=== PATIENT | female | born 1955 ===

== ENCOUNTER 2018-05-28 06:01 | Day surgery (SDC) | payer MEDICAID ==
[2018-05-22 08:48] VITALS: BMI 33.5
[2018-05-28] MEDS ORDERED: Bupivacaine 0.5% Inj(30mL) IJ ONE (06:51)
[2018-05-28] MEDS ORDERED: ceFAZolin IV 1 gm in Dextrose 1 GM/50 ML BAG IVPB ONE (06:51)
[2018-05-28] MEDS ORDERED: Lidocaine 1% Inj (20ml) IJ ONE (06:51)
--- NOTE | 2018-05-28 06:53 | CP.SDSHP ---
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 Evaluated Today:Candidate for Anesthesia & Procedure: Yes - Date & Time Date: 05/28/18 Time: 06:53 Short Stay Discharge - Short Stay Discharge Admitting Diagnosis/Reason for Visit: M20.5X1 Disposition: HOME/ ROUTINE Additional Instructions (Diet, Activity): -Patient in good/stable condition for discharge home -Pt to resume medications per medical reconciliation -Resume regular diet -Please keep dressing clean, dry, & intact to surgical site -Use plastic bag over bandage for showering -Wear post op shoe at all times when ambulating -Call clinic if you see signs of infection (redness, swelling, malodor) -Please make an appointment to see Dr. Ponce in office/clinic within 1 week for post-op check Progress Note/Discharge Note with Instructions: - Patient evaluated bedside in recovery s/p Right 5th digit surgery - After surgical procedure patient in NAD - (+) Void, (+) Appetite - Capillary refill time <3s and NVS intact. - Patient denies complaints at this time. - Post operative instructions and plan of care explained to patient at length. - Patient. acknowledges verbal understanding. - Patient stable for DC per podiatric surgery
[2018-05-28] MEDS ORDERED: Sodium Chloride 0.9% 1,000 ML IV SCH (07:00)
[2018-05-28 07:03] VITALS: RESP 18
--- NOTE | 2018-05-28 07:10 | CP.PCM.PN ---
Subjective - Date & Time of Evaluation Date of Evaluation: 05/28/18 Time of Evaluation: 07:09 - Subjective Subjective: Podiatry progress note for Dr. Ponce, 63 y/o female patient with PMHx of HTN was seen and evaluated in [facility] for right foot surgery of the 5th digit. Patient states she fractured her right 5th digit many years ago, and it causes her minimal pain. Patient denies any other complaints. Patient is AAOx3 with family present at bedside, and patient reports she last ate of drank around 9:00 PM last night. Patient denies any adverse reactions to anesthesia in the past. PMHx: HTN, glaucoma PSHx: appendectomy, cholecystectomy ALL: NKDA Objective - Vital Signs/Intake and Output Vital Signs (last 24 hours): Temp Pulse Resp BP Pulse Ox 98 F 57 L 18 106/68 97 05/28/18 06:50 05/28/18 06:50 05/28/18 06:50 05/28/18 06:50 05/28/18 06:50 - Medications Medications: Current Medications Cefazolin Sodium/Dextrose (Ancef Iv 1 Gm Duplex) 1 gm in 50 mls @ 50 mls/hr IVPB ONCE ONE; Protocol Stop: 05/28/18 07:50 Sodium Chloride (Sodium Chloride 0.9%) 1,000 mls @ 0 mls/hr IV .Q0M KAUSHAL Stop: 05/29/18 06:51 - Constitutional Appears: Well, Non-toxic, No Acute Distress - Head Exam Head Exam: ATRAUMATIC, NORMOCEPHALIC - Extremities Exam Additional comments: Right lower extremity VASC: DP and PT 2/4 palpable, CFT less than 3 seconds X 10, no edema, TG within normal limits NEURO: grossly intact DERM: no open lesions, no erythema, no edema, no clinical signs of infection ORTHO: hammering noted of the 5th digit, no pain on palpation, no pain with range of motion - Neurological Exam Neurological Exam: Alert, Awake, Oriented x3 - Psychiatric Exam Psychiatric exam: Normal Affect, Normal Mood Assessment and Plan - Assessment and Plan (Free Text) Assessment: 63 y/o female seen and evaluated in [facility] for right 5th digit arthroplasty Plan: Pt was seen and examined in [facility] Pt NPO status was confirmed All pre-op testing and clearance in chart Pt has exhausted all conservative treatment at this time and is opting for surgical intervention Pt was explained procedure and post-operative course All pt's questions were answered to satisfaction No guarantees were made Pt understands all risks, benefits and complications of procedure Pt will follow-up with Dr. Ponce within 1 week of surgery
[2018-05-28] MEDS ORDERED: Propofol 10 mg/ml Inj (20 ML) ONE ×2 (07:18→07:21)
[2018-05-28] MEDS ORDERED: ePHEDrine 50 mg/ml Inj ONE (07:18)
[2018-05-28] MEDS ORDERED: Succinylcholine 200 mg/10 ml Inj IV ONE (07:19)
[2018-05-28] MEDS ORDERED: Rocuronium 10 mg/ml (5 ml) ONE (07:19)
[2018-05-28] MEDS ORDERED: Phenylephrine 10 mg/ml Inj ONE (07:19)
[2018-05-28] MEDS ORDERED: Midazolam 2 MG/2 ML VIAL ONE (07:19)
[2018-05-28] MEDS ORDERED: Lidocaine 1% Inj (20ml) ONE (07:24)
[2018-05-28] MEDS ORDERED: Bupivacaine HCl 0.25% PF (30 ml) Inj ONE (07:24)
[2018-05-28] MEDS ORDERED: Sodium Chloride 0.9% 10 ML IV ONE (07:28)
[2018-05-28] MEDS ORDERED: Lactated Ringer's 1,000 ML IV ONE (07:55)
[2018-05-28] MEDS ORDERED: Bupivacaine 0.25% Inj(30mL) IJ ONE (08:00)
[2018-05-28] MEDS ORDERED: Dexamethasone 4 mg/1 ml ONE (08:33)
--- NOTE | 2018-05-28 08:46 | PCM.SURG1 ---
Surgeon's Initial Post Op Note - Surgeon's Notes Surgeon: Dr. Mike Ponce Nuclear Powerplant Mechanic Helper: Dr. Linette Gamez PGY1, Dr. Gil Jackson PGY2 Type of Anesthesia: IV Sedation Pre-Operative Diagnosis: R foot deformity of 5th digit Operative Findings: See dictation. I: 2cc 0.5% marcaine. M: 3-0 Vicryl, 4-0 Nylon Post-Operative Diagnosis: Same Operation Performed: Right 5th digit arthroplasty Specimen/Specimens Removed: Bone from right 5th digit Estimated Blood Loss: EBL {In ML}: 1 Blood Products Given: N/A Drains Used: No Drains Post-Op Condition: Good Date of Surgery/Procedure: 05/28/18 Time of Surgery/Procedure: 08:46
[2018-05-28] MEDS ORDERED: Oxycodone/Acetaminophen 5/325 mg Tab PO PRN ×2 (08:47)
[2018-05-28 15:05] VITALS: BP 113/72; PULSE 70; TEMP 97.5; O2SAT 100
--- NOTE | 2018-05-28 15:33 | RAD ---
Date of service: 05/28/2018 PROCEDURE: Right Foot Radiographs. HISTORY: s/p right foot surgery COMPARISON: 01/03/2018. FINDINGS: BONES: Status post partial amputation of proximal phalanx of the little toe. Bone alignment and mineralization are normal. There is no acute fracture or bone destruction. There is a small plantar calcaneal spur. There is a prominent dorsal calcaneal enthesophyte. JOINTS: Normal. SOFT TISSUES: There is moderate soft tissue swelling in the forefoot. OTHER FINDINGS: None. IMPRESSION: Status post partial amputation of the proximal phalanx of the little toe. No acute fracture or bone destruction. Findings soft tissue swelling in the forefoot.
--- NOTE | 2018-05-28 20:01 | CARD ---
APPROVED REPORT Date of service: 05/28/2018 EKG Measurement Heart [id number] <Conclusion> Sinus bradycardia Nonspecific T wave abnormality Abnormal ECG
--- NOTE | 2018-06-02 07:48 | OP ---
PROCEDURE DATE: 05/28/2018 PATIENT'S AGE: 63. PATIENT'S SEX: Female. SURGEON: Mike Ponce DPM ASSISTANTS: Alex Stock, PGY-1 and Gil Jackson DPM, PGY-2 TYPE OF ANESTHESIA: IV sedation with local block. PREOPERATIVE DIAGNOSIS: Right foot deformity of the fifth digit. POSTOPERATIVE DIAGNOSIS: Right foot deformity of the fifth digit. NAME OF PROCEDURE: Right fifth digit arthroplasty. INDICATION: The patient is a 63-year-old female with the above diagnosis. The patient has exhausted conservative treatment at this time and is now pursuing surgical intervention. The patient signed the consent after careful explanation of risks, benefits, complications, and alternatives for surgical procedure. No guarantees were given nor implied. N.p.o. status was confirmed prior to taking the patient to operating room. PREPARATION: The patient was brought back into the operating room and placed on the operating room table in the supine position. After induction of IV sedation, the patient received a total of 10 mL of 1:1 mixture of 0.5% Marcaine plain and 1% lidocaine plain in a local block fashion to the right foot. Once local anesthesia was achieved, the right foot was then prepped and draped in the usual sterile manner. A time-out was performed and the procedure began. DESCRIPTION OF PROCEDURE: Attention was directed to the right fifth digit where a 2-cm linear incision was made on the dorsal aspect of the proximal interphalangeal joint of the fifth digit. After dissection was carried down through the deep cutaneous tissue, being careful to identify and retract all vital neurovascular structure. All bleeders were ligated and cauterized. At this time, medial capsulotomy was performed to the distal interphalangeal joint. identified in the joint space . Using a bone rongeur, the proximal aspect of the proximal phalanx was then resected and passed off the operating field. The surgical site was then irrigated with copious amounts of normal sterile saline. The were reapproximated and sutured with a 3-0 Vicryl. The skin was then reapproximated with stitches with 4-0 nylon. The right foot was then dressed with Xeroform, DSD, and . POSTOPERATIVE CONDITION: The patient tolerated the anesthesia and procedure well and was escorted to the recovery room with vital signs stable and neurovascular status intact to the right foot. The patient will follow up with Dr. Ponce in office within one week. ALEX REBECCA Mike Ponce DPM
== END 2018-05-28 12:50 | disposition home or self-care (01) ==
LOC: H.OPSURG 06:01
PROVIDERS: ATTEND Podiatrist
DX: M20.41 Other hammer toe(s) (acquired), right foot (principal); M20.5X1 Other deformities of toe(s) (acquired), right foot; J44.9 Chronic obstructive pulmonary disease, unspecified; E78.5 Hyperlipidemia, unspecified; I10 Essential (primary) hypertension; G40.909 Epilepsy, unspecified, not intractable, without status epilepticus; K21.9 Gastro-esophageal reflux disease without esophagitis; M54.9 Dorsalgia, unspecified; Z90.49 Acquired absence of other specified parts of digestive tract; M54.5 Low back pain
CPT/HCPCS: 28285; 73630; 88304; 93005; 97161; G8978; G8979; G8980; J0690; J1100; J2250; J3010; J7030; J7120

== ENCOUNTER 2018-07-12 09:48 | Emergency (ER) | payer MEDICAID ==
[2018-07-12 09:48] VITALS: BMI 33.5
[2018-07-12 09:56] VITALS: BP 135/77; PULSE 77; RESP 18; TEMP 97.6; O2SAT 95
--- NOTE | 2018-07-12 10:51 | ED PDOC ---
HPI: Skin/Bite Injury Time Seen by Provider: 07/12/18 10:10 Chief Complaint (Nursing): Abnormal Skin Integrity Chief Complaint (Provider): abscess History Per: Patient Additional Complaint(s): 63 yo female, PMH of Asthma, presents to ED for evaluation of a worsening "pimple" to her back. Pt notes she has had the mass for months; however, in the last 4 days it got more red, swollen and painful. No fever or chills. Past Medical History Reviewed: Nursing Documentation, Vital Signs Vital Signs: Last Vital Signs Temp 97.6 F 07/12/18 09:55 Pulse 77 07/12/18 09:55 Resp 18 07/12/18 09:55 BP 135/77 07/12/18 09:55 Pulse Ox 95 07/12/18 09:55 - Medical History PMH: Asthma, Gastritis, HTN (Patient denies), Hypercholesterolemia, Seizures (last one more then 5 years ago) Denies: Chronic Kidney Disease - Surgical History Surgical History: Cholecystectomy - Family History Family History: States: No Known Family Hx - Living Arrangements Living Arrangements: With Family - Social History Current smoker - smoking cessation education provided: No Alcohol: None Drugs: Denies - Home Medications Home Medications: Ambulatory Orders Medication Instructions Recorded Esomeprazole Magnesium [Nexium 20 mg PO DAILY PRN 06/06/15 24Hr] Fluticasone/Salmeterol 250/50 1 puff IH Q12 #0 puff 06/07/15 [Advair Diskus] Ipratropium/Albuterol Sulfate 2 avel IH Q4 PRN #0 avel 06/07/15 [Combivent] Fenofibrate 67 mg PO DAILY 05/22/18 Ibuprofen [Motrin Tab] 800 mg PO Q6 PRN 05/22/18 Acetaminophen with Codeine 1 tab PO Q4 PRN 05/28/18 [Tylenol with Codeine No. 3 300 mg-30 mg] Cephalexin [cephalexin] 500 mg PO BID #14 cap 07/12/18 Ibuprofen [Motrin] 600 mg PO Q6 #20 tab 07/12/18 Sulfamethoxazole/Trimethoprim 1 tab PO BID 5 Days tab 07/12/18 [Bactrim DS 800 mg-160 mg] - Allergies Allergies/Adverse Reactions: Allergies Allergy/AdvReac Type Severity Reaction Status Date / Time No Known Allergies Allergy Verified 05/28/18 06:17 Review of Systems ROS Statement: Except As Marked, All Systems Reviewed And Found Negative Skin: Positive for: Other (abscess) Physical Exam - Reviewed Nursing Documentation Reviewed: Yes Vital Signs Reviewed: Yes - Physical Exam Appears: Positive for: Well, Non-toxic, No Acute Distress Head Exam: Positive for: ATRAUMATIC, NORMAL INSPECTION, NORMOCEPHALIC Skin: Positive for: Normal Color, Warm, DRY Eye Exam: Positive for: EOMI, Normal appearance, PERRL ENT: Positive for: Normal ENT Inspection Neck: Positive for: Normal, Painless ROM Cardiovascular/Chest: Positive for: Regular Rate, Rhythm Respiratory: Positive for: CNT, Normal Breath Sounds Gastrointestinal/Abdominal: Positive for: Normal Exam, Soft Back: Positive for: Other (mid back, (+) 5 cm erythema and induration, centralized pustule noted.) Extremity: Positive for: Normal ROM Neurologic/Psych: Positive for: Alert, Oriented - ECG O2 Sat by Pulse Oximetry: 95 Medical Decision Making Medical Decision Making: site incised and drained by teletypewriter operator packing in place. wound care discussed. Disposition - Clinical Impression Clinical Impression: Abscess - Patient ED Disposition Is Patient to be Admitted: No - Disposition Disposition: Routine/Home Disposition Time: 11:34 Condition: STABLE Prescriptions: Cephalexin [cephalexin] 500 mg PO BID #14 cap Ibuprofen [Motrin] 600 mg PO Q6 #20 tab Sulfamethoxazole/Trimethoprim [Bactrim DS 800 mg-160 mg] 1 tab PO BID 5 Days tab Instructions: Skin Abscess Forms: [employer] (Chadian), [employer] (Romansh) Print Language: ENGLISH Incision and Drainage - Time Out Time Out: Side verified, Site verified, Patient ID confirmed - Consent obtained Consent obtained: Verbal - Performed by Performed by: Mid-level Provider - Indications Indications: Cutaneous abscess - Contraindications Contraindications: None - Anesthetic Technique Anesthetic Technique: Local - Anesthetic Anesthetic: Lidocaine 1% - Procedure Procedure: Usual prep and drape, # scalpel used (11), Explored for loculations, Packed with sterile gauze - Drained Drained: ml pus - Post-procedure Post procedure: Dressed - Complications Complications: None - Patient tolerated procedure Patient tolerated procedure: Well
[2018-07-12] MEDS ORDERED: Lidocaine 1% Inj (20ml) ONE (11:01)
[2018-07-12] MEDS ORDERED: Povidone Iodine Topical 10% Sol ONE (11:01)
[2018-07-12] MEDS ORDERED: Oxycodone/Acetaminophen 5/325 mg Tab PO STA (11:18)
[2018-07-12] MEDS ORDERED: Tmp-Smz 800 mg-160 mg DS Tab PO STA (11:18)
[2018-07-12] MEDS ORDERED: Tmp-Smz 800 mg-160 mg DS Tab ONE (12:21)
[2018-07-12] MEDS ORDERED: Oxycodone/Acetaminophen 5/325 mg Tab ONE (12:22)
== END 2018-07-12 12:30 | disposition home or self-care (01) ==
LOC: H.ER 09:48
DX: L02.212 Cutaneous abscess of back [any part, except buttock and flank] (principal)

== ENCOUNTER 2018-07-15 08:53 | Emergency (ER) | payer MEDICAID ==
[2018-07-15 08:53] VITALS: BMI 33.5
[2018-07-15 09:14] VITALS: BP 117/67; PULSE 74; RESP 18; TEMP 97; O2SAT 96
--- NOTE | 2018-07-15 09:35 | ED PDOC ---
HPI: Wound Care - HPI Time Seen by Provider: 07/15/18 09:21 Chief Complaint (Nursing): Wound Check Chief Complaint (Provider): wound check History Per: Patient, Stave Machine Tender Exam Limitations: no limitations Location Of Injury: Posterior: Back Severity: Moderate Additional Complaint(s): 63yo female, returns to ER for a wound check; patient was seen 3 days ago for an abscess on her back, which was incised and drained and packing was placed. Patient states she is compliant with her Keflex and Bactrim and reports improvement in pain. She denies any fever or chills. She also denies any prior history of abscesses. Past Medical History Reviewed: Historical Data, Nursing Documentation, Vital Signs Vital Signs: Last Vital Signs Temp 97 F L 07/15/18 09:13 Pulse 74 07/15/18 09:13 Resp 18 07/15/18 09:13 BP 117/67 07/15/18 09:13 Pulse Ox 96 07/15/18 09:13 - Medical History PMH: Asthma, Gastritis, HTN (Patient denies), Hypercholesterolemia, Seizures (last one more then 5 years ago) Denies: Chronic Kidney Disease - Surgical History Surgical History: Cholecystectomy - Family History Family History: States: No Known Family Hx - Home Medications Home Medications: Ambulatory Orders Medication Instructions Recorded Esomeprazole Magnesium [Nexium 20 mg PO DAILY PRN 06/06/15 24Hr] Fluticasone/Salmeterol 250/50 1 puff IH Q12 #0 puff 06/07/15 [Advair Diskus] Ipratropium/Albuterol Sulfate 2 avel IH Q4 PRN #0 avel 06/07/15 [Combivent] Fenofibrate 67 mg PO DAILY 05/22/18 Ibuprofen [Motrin Tab] 800 mg PO Q6 PRN 05/22/18 Acetaminophen with Codeine 1 tab PO Q4 PRN 05/28/18 [Tylenol with Codeine No. 3 300 mg-30 mg] Cephalexin [cephalexin] 500 mg PO BID #14 cap 07/12/18 Ibuprofen [Motrin] 600 mg PO Q6 #20 tab 07/12/18 Sulfamethoxazole/Trimethoprim 1 tab PO BID 5 Days tab 07/12/18 [Bactrim DS 800 mg-160 mg] - Allergies Allergies/Adverse Reactions: Allergies Allergy/AdvReac Type Severity Reaction Status Date / Time No Known Allergies Allergy Verified 07/15/18 09:06 Review of Systems ROS Statement: Except As Marked, All Systems Reviewed And Found Negative Constitutional: Negative for: Fever, Chills Skin: Positive for: Other (incision site to mid back s/p incision and drainage of abscess 3 days ago) Physical Exam - Reviewed Nursing Documentation Reviewed: Yes Vital Signs Reviewed: Yes - Physical Exam Appears: Positive for: Non-toxic Cardiovascular/Chest: Positive for: Regular Rate, Rhythm Respiratory: Positive for: Normal Breath Sounds Back: Positive for: Normal Inspection (Full range of motion), Other (incision site with packing in placed noted to mid-thoracic region; no induration, or surrounding erythema noted.). Negative for: Vertebral Tenderness Extremity: Positive for: Normal ROM Neurologic/Psych: Positive for: Alert, Oriented - ECG O2 Sat by Pulse Oximetry: 96 (RA) Pulse Ox Interpretation: Normal Medical Decision Making Medical Decision Making: Impression: 63yo female, presents for wound check Plan: packing removed w mild thick discharge, massaged and irrigated sterile saline, packing replaced for 2 more days. return for packing removal and wound check in 2 days. continue Abx PO. Scribe Attestation: Documented by Chaparrita Cordon acting as a scribe for Aaron Torres DO. Provider Attestation: All medical record entries made by the Scribe were at my direction and personally dictated by me. I have reviewed the chart and agree that the record accurately reflects my personal performance of the history, physical exam, medical decision making, and the department course for this patient. I have also personally directed, reviewed, and agree with the discharge instructions and disposition. Disposition - Clinical Impression Clinical Impression: Wound check, abscess - Patient ED Disposition Is Patient to be Admitted: No Counseled Patient/Family Regarding: Studies Performed, Diagnosis - Disposition Disposition: Routine/Home Disposition Time: 09:37 Condition: STABLE Additional Instructions: Return to ER in 2 days for packing removal and wound check. Continue antibiotics as prior prescribed. Instructions: Abscess Incision and Drainage (DC) Forms: [employer] (Guamanian) Print Language: ANDORRAN
== END 2018-07-15 09:55 | disposition home or self-care (01) ==
LOC: H.ER 08:53
DX: Z48.01 Encounter for change or removal of surgical wound dressing (principal); I10 Essential (primary) hypertension; J45.909 Unspecified asthma, uncomplicated; Z87.19 Personal history of other diseases of the digestive system

== ENCOUNTER 2018-07-18 08:47 | Emergency (ER) | payer MEDICAID ==
[2018-07-18 08:47] VITALS: BMI 33.5
[2018-07-18 08:52] VITALS: BP 115/57; PULSE 76; RESP 17; TEMP 98.2; O2SAT 96
--- NOTE | 2018-07-18 09:19 | ED PDOC ---
HPI: Wound Care - HPI Time Seen by Provider: 07/18/18 08:56 Chief Complaint (Nursing): Wound Check Chief Complaint (Provider): wound check follow up History Per: Patient Exam Limitations: no limitations Onset/Duration Of Symptoms: Days Current Symptoms Are (Timing): Still Present Additional Complaint(s): Magalis Lopez is a 63 year old female, with a past medical history of HTN, who presents to the emergency department accompanied by her sister for follow up s/p abscess in her back. Sister reports this is the 3rd visit, abscess has been drained and packed x2 and patient has been compliant with her antibiotics. Patient denies any fever, chills or other medical complaints. PMD: Jose Alberto Varner Past Medical History Reviewed: Historical Data, Nursing Documentation, Vital Signs Vital Signs: Last Vital Signs Temp 98.2 F 07/18/18 08:50 Pulse 76 07/18/18 08:50 Resp 17 07/18/18 08:50 BP 115/57 L 07/18/18 08:50 Pulse Ox 96 07/18/18 08:50 - Medical History PMH: Asthma, Gastritis, HTN (Patient denies), Hypercholesterolemia, Seizures (last one more then 5 years ago) Denies: Chronic Kidney Disease - Surgical History Surgical History: Cholecystectomy - Family History Family History: States: No Known Family Hx - Home Medications Home Medications: Ambulatory Orders Medication Instructions Recorded Esomeprazole Magnesium [Nexium 20 mg PO DAILY PRN 06/06/15 24Hr] Fluticasone/Salmeterol 250/50 1 puff IH Q12 #0 puff 06/07/15 [Advair Diskus] Ipratropium/Albuterol Sulfate 2 avel IH Q4 PRN #0 avel 06/07/15 [Combivent] Fenofibrate 67 mg PO DAILY 05/22/18 Ibuprofen [Motrin Tab] 800 mg PO Q6 PRN 05/22/18 Acetaminophen with Codeine 1 tab PO Q4 PRN 05/28/18 [Tylenol with Codeine No. 3 300 mg-30 mg] Cephalexin [cephalexin] 500 mg PO BID #14 cap 07/12/18 Ibuprofen [Motrin] 600 mg PO Q6 #20 tab 07/12/18 Sulfamethoxazole/Trimethoprim 1 tab PO BID 5 Days tab 07/12/18 [Bactrim DS 800 mg-160 mg] Cephalexin [cephalexin] 500 mg PO TID #15 cap 07/18/18 Sulfamethoxazole/Trimethoprim 1 tab PO BID #10 tab 07/18/18 [Bactrim DS 800 mg-160 mg] - Allergies Allergies/Adverse Reactions: Allergies Allergy/AdvReac Type Severity Reaction Status Date / Time No Known Allergies Allergy Verified 07/18/18 09:02 Review of Systems ROS Statement: Except As Marked, All Systems Reviewed And Found Negative Constitutional: Negative for: Fever, Chills Skin: Positive for: Other (back abscess) Physical Exam - Reviewed Nursing Documentation Reviewed: Yes Vital Signs Reviewed: Yes - Physical Exam Appears: Positive for: No Acute Distress Head Exam: Positive for: ATRAUMATIC, NORMAL INSPECTION, NORMOCEPHALIC Skin: Positive for: Normal Color, Warm, Dry Eye Exam: Positive for: Normal appearance, EOMI, PERRL Neck: Positive for: Normal, Painless ROM Back: Positive for: Other (Abscess with packing dislodged. Swollen and purulent drainage. No significant surrounding erythema or induration. Wound is still open) Extremity: Positive for: Normal ROM (all extremities). Negative for: Deformity Neurologic/Psych: Positive for: Alert, Oriented - ECG O2 Sat by Pulse Oximetry: 96 (RA) Pulse Ox Interpretation: Normal Medical Decision Making Medical Decision Making: Time: 08:56 Initial Impression: Abscess Initial Plan: -Wound will be re-packed and advise patient to follow up in x2-3 days for wound check. Scribe Attestation: Documented by Micah Wright, acting as a scribe for Eleni Spears MD Provider Scribe Attestation: All medical record entries made by the Scribe were at my direction and personally dictated by me. I have reviewed the chart and agree that the record accurately reflects my personal performance of the history, physical exam, medical decision making, and the department course for this patient. I have also personally directed, reviewed, and agree with the discharge instructions and disposition. wound packed again with 1/4" strip of iodoform Disposition - Clinical Impression Clinical Impression: Encounter for wound re-check - Patient ED Disposition Is Patient to be Admitted: No Doctor Will See Patient In The: Office Counseled Patient/Family Regarding: Diagnosis, Need For Followup - Disposition Referrals: Jose Alberto Varner MD [Family Provider] - Disposition: Routine/Home Disposition Time: 09:15 Condition: STABLE Prescriptions: Cephalexin [cephalexin] 500 mg PO TID #15 cap Sulfamethoxazole/Trimethoprim [Bactrim DS 800 mg-160 mg] 1 tab PO BID #10 tab Instructions: Wound Incision and Drainage Forms: [employer] [employer] (Uzbek) - POA Present On Arrival: None
== END 2018-07-18 09:59 | disposition home or self-care (01) ==
LOC: H.ER 08:47
DX: Z48.01 Encounter for change or removal of surgical wound dressing (principal); I10 Essential (primary) hypertension; J45.909 Unspecified asthma, uncomplicated

== ENCOUNTER 2018-07-22 09:20 | Emergency (ER) | payer MEDICAID ==
[2018-07-22 09:21] VITALS: BMI 33.5
[2018-07-22 09:42] VITALS: BP 132/75; PULSE 74; RESP 18; TEMP 97; O2SAT 97
--- NOTE | 2018-07-22 10:13 | ED PDOC ---
HPI: Wound Care - HPI Time Seen by Provider: 07/22/18 09:41 Chief Complaint (Nursing): Wound Check Chief Complaint (Provider): Wound Check History Per: Patient Exam Limitations: no limitations Onset/Duration Of Symptoms: Days (4) Current Symptoms Are (Timing): Still Present Location Of Injury: Right: Back Additional Complaint(s): 63 year old female presents to the ED returning for a fourth evaluation for ongoing abscess to the right lower thoracic back. Patient is taking her antibiotics and states the wound feels better as she is able to sleep on that area. Provider viewed previous chart which presents the patient is showing continuous improvements since the last 4 days. Otherwise, she denies fever or chills. PMD: Jose Alberto Varner Past Medical History Reviewed: Historical Data, Nursing Documentation, Vital Signs Vital Signs: Last Vital Signs Temp 97 F L 07/22/18 09:39 Pulse 74 07/22/18 09:39 Resp 18 07/22/18 09:39 BP 132/75 07/22/18 09:39 Pulse Ox 97 07/22/18 09:39 - Medical History PMH: Asthma, Gastritis, HTN (Patient denies), Hypercholesterolemia, Seizures (last one more then 5 years ago) Denies: Chronic Kidney Disease - Surgical History Surgical History: Cholecystectomy - Family History Family History: States: Unknown Family Hx - Home Medications Home Medications: Ambulatory Orders Medication Instructions Recorded Esomeprazole Magnesium [Nexium 20 mg PO DAILY PRN 06/06/15 24Hr] Fluticasone/Salmeterol 250/50 1 puff IH Q12 #0 puff 06/07/15 [Advair Diskus] Ipratropium/Albuterol Sulfate 2 avel IH Q4 PRN #0 avel 06/07/15 [Combivent] Fenofibrate 67 mg PO DAILY 05/22/18 Ibuprofen [Motrin Tab] 800 mg PO Q6 PRN 05/22/18 Acetaminophen with Codeine 1 tab PO Q4 PRN 05/28/18 [Tylenol with Codeine No. 3 300 mg-30 mg] Cephalexin [cephalexin] 500 mg PO BID #14 cap 07/12/18 Ibuprofen [Motrin] 600 mg PO Q6 #20 tab 07/12/18 Sulfamethoxazole/Trimethoprim 1 tab PO BID 5 Days tab 07/12/18 [Bactrim DS 800 mg-160 mg] Cephalexin [cephalexin] 500 mg PO TID #15 cap 07/18/18 Sulfamethoxazole/Trimethoprim 1 tab PO BID #10 tab 07/18/18 [Bactrim DS 800 mg-160 mg] Ibuprofen [Motrin Tab] 600 mg PO Q6 PRN #15 tab 07/22/18 - Allergies Allergies/Adverse Reactions: Allergies Allergy/AdvReac Type Severity Reaction Status Date / Time No Known Allergies Allergy Verified 07/22/18 09:39 Review of Systems ROS Statement: Except As Marked, All Systems Reviewed And Found Negative Constitutional: Negative for: Fever, Chills Skin: Positive for: Other (abscess to the right lower thoracic back) Physical Exam - Reviewed Nursing Documentation Reviewed: Yes Vital Signs Reviewed: Yes - Physical Exam Appears: Positive for: Non-toxic Skin: Positive for: Normal Color (see back exam ) Cardiovascular/Chest: Positive for: Regular Rate, Rhythm Respiratory: Positive for: Normal Breath Sounds Back: Positive for: Other (on right side of the back there is non-erythematous, non-tender wound s/p I&D. Wound massaged with some discharge of thick heterogeneous, foul smelling material and irrigated again ) Neurologic/Psych: Positive for: Alert, Oriented (x3) - ECG O2 Sat by Pulse Oximetry: 97 (RA) Pulse Ox Interpretation: Normal Medical Decision Making Medical Decision Making: Time: 1000 Impression: marsupialization of possible cyst given reoccurrence Discussed case with Dr. Varner and informed of patient's condition. Patient provided wound care instructions and advised to continue with the use of antibiotics. Patient informed for follow up with surgeon for marsupialization and Dr. Varner. Upon provider reevaluation patient is feeling better, is medically stable, and requires no further treatment in the ED at this time. Patient will be discharged with Motrin 600mg for pain. Counseling was provided and all questions were answered regarding diagnosis and need for follow up with Dr. Varner. There is agreement to discharge plan. Return if symptoms persist or worsen. ------- Scribe Attestation: Documented by Noah Lew acting as a scribe for Aaron Torres III, DO Provider Scribe Attestation: All medical record entries made by the Scribe were at my direction and personally dictated by me. I have reviewed the chart and agree that the record accurately reflects my personal performance of the history, physical exam, medical decision making, and the department course for this patient. I have also personally directed, reviewed, and agree with the discharge instructions and disposition. Disposition - Clinical Impression Clinical Impression: Wound check, abscess - Patient ED Disposition Is Patient to be Admitted: No - Disposition Referrals: Jose Alberto Varner MD [Family Provider] - Disposition: Routine/Home Disposition Time: 10:00 Condition: STABLE Additional Instructions: USe bacitracin to wound 3x daily (samples given). Continue antibiotics as directed. See Dr Varner for followup in 3-4 days. Use warm compress to area 2x daily. Keep area covered and dry, but you may shower fully. Prescriptions: Ibuprofen [Motrin Tab] 600 mg PO Q6 PRN #15 tab PRN Reason: Pain, Moderate (4-7) Instructions: Wound Care (DC) Forms: [facility] (Malay)
== END 2018-07-22 10:36 | disposition home or self-care (01) ==
LOC: H.ER 09:20
DX: Z48.00 Encounter for change or removal of nonsurgical wound dressing (principal)